=== PATIENT | female | born 1995 | race Caucasian/White ===

== ENCOUNTER 2016-06-20 09:58 | Emergency (ER) | payer OTHER ==
[~2016-06-20] VITALS: Ht 170.2 cm; Wt 57.5 kg
[2016-06-20 10:14] VITALS: Ht 170.2 cm; Wt 57.5 kg
[2016-06-20] MEDS ORDERED: ACETAMINOPHEN 500 MG TAB PO STA (11:07)
[2016-06-20 11:37] LABS: BASOPHIL # 0.1 10^3/ul (0.0-0.1); EOSINOPHILS # 0.2 10^3/ul (0.0-0.5); HEMATOCRIT 38.2 % (37.0-47.0); HEMOGLOBIN 12.9 g/dl (12.0-16.0); LYMPHOCYTES # 2.2 10^3/ul (0.8-2.9); LYMPHOCYTES % 27.6 % (15.0-51.0); MEAN CORPUSCULAR HEMOGLOBIN 27.7 pg (29.0-33.0); MEAN CORPUSCULAR HGB CONC 33.8 g/dl (32.0-37.0); MEAN PLATELET VOLUME 9.4 fl (7.4-10.4); MONOCYTE # 0.5 10^3/ul (0.3-0.9); MONOCYTES % 6.3 % (0.0-11.0); NEUTROPHILS % 62.8 % (39.0-77.0); PLATELET COUNT 340 10^3/UL (140-415); RED BLOOD COUNT 4.66 10^6/ul (4.20-5.40); WHITE BLOOD COUNT 7.9 10^3/ul (4.8-10.8)
[2016-06-20 11:39] LABS: ADD UMIC YES; URINE BILIRUBIN (Dip) NEGATIVE (NEGATIVE); URINE BLOOD (Dip) 2+ (NEGATIVE); URINE COLOR LT. YELLOW (YELLOW); URINE GLUCOSE (Dip) NEGATIVE (NEGATIVE); URINE KETONES (Dip) NEGATIVE (NEGATIVE); URINE LEUKOCYTE ESTERASE (Dip) TRACE (NEGATIVE); URINE NITRITE (Dip) NEGATIVE (NEGATIVE); URINE TOTAL PROTEIN (Dip) NEGATIVE (NEGATIVE); URINE UROBILINOGEN (Dip) 0.2 E.U./dL (0.1-1.0)
--- NOTE | 2016-06-20 11:54 | RADRPT ---
PROCEDURE: US Obstetrical 1st Trimester CLINICAL INDICATION: Vaginal bleeding TECHNIQUE: Multiple real-time images were acquired of the patient's maternal abdomen utilizing a curved array transducer. COMPARISON: None FINDINGS: The uterus is normal in size and measures 8.8 cm in sagittal diameter and 6.9 x 4.6 cm in cross diam eter.. The endometrial stripe measures 1.2 cm in total AP diameter. No gestational sac is identified. The right ovary measures 3.9 by 2.1 x 1.3 cm. Vascular flow is demonstrated within the right ovary o n Doppler. The left ovary is not identified. No adnexal mass or free fluid is identified IMPRESSION: 1. Normal size empty uterus with a 1.2 cm endometrial stripe. No intrauterine gestation is evident. 2. The left ovary is not identified. The right ovary appears normal and demonstrates vascular flow . 3. No adnexal mass or free fluid is evident. 4. If the test is indeed positive, correlation with quantitative serial beta HCG may be u seful. Possibilities include a spontaneous and an occult ectopic cannot be exclu ded. Physician Herber Date Time Electronically viewed and signed by Physician Herber on 06/20/2016 11:54 RH/
[2016-06-20 12:10] LABS: BACTERIA,URINE FEW
[2016-06-20] MEDS ORDERED: ACET500C5 PO (12:16)
--- NOTE | 2016-06-22 12:07 | ERD ---
ER Documentation Chief Complaint Date/Time DATE: 06/22/16 TIME: 12:05 Chief Complaint Complains of vag bleed and 10 wks HPI This 18-year-old female presents with a one-day history of spotting and suprapubic cramping. She is approximately 10 weeks by dates. She is a G2 para 0. She denies fevers, vomiting, right-sided abdominal pain. ROS All systems reviewed and are negative except as per history of present illness. Medications Home Meds Active Scripts Acetaminophen* (Tylophen*) 500 Mg Capsule, 1 CAP PO Q6H Y for PAIN AND OR ELEVATED TEMP, #15 CAP Prov:YURI BAE MD 06/20/16 Allergies Allergies: Coded Allergies: No Known Allergy (Unverified , 06/20/16) PMhx/Soc Medical and Surgical Hx: pt denies Medical Hx, pt denies Surgical Hx Hx Alcohol Use: No Hx Substance Use: No Hx Tobacco Use: No Physical Exam Vitals Vital Signs Date Time Temp Pulse Resp B/P Pulse Ox O2 Delivery O2 Flow Rate FiO2 06/20/16 10:14 98.2 86 20 122/82 100 Physical Exam Const: [] Head: Atraumatic Eyes: Normal Conjunctiva ENT: Normal External Ears, Nose and Mouth. Neck: Full range of motion..~ No meningismus. Resp: Clear to auscultation bilaterally Cardio: Regular rate and rhythm, no murmurs Abd: Soft, non tender, non distended. Normal bowel sounds Skin: No petechiae or rashes Back: No midline or flank tenderness Ext: No cyanosis, or edema Neur: Awake and alert Psych: Normal Mood and Affect Result Diagram: 06/20/16 1100 Results 24 hrs Laboratory Tests Test 06/20/16 11:00 Basophils # 0.110^3/ul Basophils % 1.0% Beta HCG, Quantitative 1177.2mIU/ml Eosinophils # 0.210^3/ul Eosinophils % 2.0% Hematocrit 38.2% Hemoglobin 12.9g/dl Lymphocytes # 2.210^3/ul Lymphocytes % 27.6% Mean Corpuscular Hemoglobin 27.7pg Mean Corpuscular Hemoglobin Concent 33.8g/dl Mean Corpuscular Volume 82.0fl Mean Platelet Volume 9.4fl Monocytes # 0.510^3/ul Monocytes % 6.3% Neutrophils # 5.010^3/ul Neutrophils % 62.8% Nucleated Red Blood Cells # 0.010^3/ul Nucleated Red Blood Cells % 0.0/100WBC Platelet Count 09880^3/UL Red Blood Count 4.6610^6/ul Red Cell Distribution Width 12.0% Urine Bacteria FEW Urine Bilirubin NEGATIVE Urine Clarity CLEAR Urine Color LT. YELLOW Urine Epithelial Cells FEW Urine Glucose NEGATIVE% Urine Hemoglobin 2+ Urine Ketones NEGATIVE Urine Leukocyte Esterase TRACE Urine Microscopic RBC 2-5/HPF Urine Microscopic WBC 0-2/HPF Urine Nitrite NEGATIVE Urine Specific [place] 1.010 Urine Total Protein NEGATIVE Urine Urobilinogen 0.2 E.U./dL Urine pH 6.0 White Blood Count 7.910^3/ul Current Medications Medications (Trade) Dose Ordered Sig/Alex Route PRN Reason Start Time Stop Time Status Last Admin Dose Admin Acetaminophen (Tylenol Tab) 500 mg ONCE STAT PO 06/20/16 11:07 06/20/16 11:09 DC 06/20/16 11:19 Procedures/MDM Quantitative hCG is 1100. Patient is Rh+. CBC is normal. Urine shows trace leukocytes positive hemoglobin. Pelvic ultrasound-MPRESSION: 1. Normal size empty uterus with a 1.2 cm endometrial stripe. No intrauterine gestation is evident. 2. The left ovary is not identified. The right ovary appears normal and demonstrates vascular flow. 3. No adnexal mass or free fluid is evident. 4. If the test is indeed positive, correlation with quantitative serial beta HCG may be useful. Possibilities include a spontaneous and an occult ectopic cannot be excluded. Patient presents with vaginal bleeding and cramping on the first semester no visible intrauterine . There is no obvious signs of ectopic today. Patient will need a 2 day follow-up. Differential includes early normal , incomplete or complete , ectopic . Patient will be discharged home with instructions to recheck in 2 days to recheck hormone levels and possibly ultrasound. She should otherwise return for fevers, vomiting, new worsening symptoms Departure Diagnosis: Primary Impression: Vaginal bleeding in patient at less than 20 weeks ges... Condition: Stable Patient Instructions: Bleeding During Early Additional Instructions: No visible on ultrasound. Suspect miscarriage complete the possibility of ectopic still. Recommend recheck hormone level in 48 hours or return sooner for fevers, new worsening symptoms. Follow-up with treating [employer] for further treatment . YURI BAE MD Jun 22, 2016 12:07
== END 2016-06-20 12:48 | disposition home or self-care (01) ==
LOC: FTE 09:58
DX: O20.9 Hemorrhage in early pregnancy, unspecified (principal); Z3A.10 10 weeks gestation of pregnancy
CPT/HCPCS: 36415; 76801; 81001; 84702; 85025; 86900; 86901; Z7502; Z7610; 81003

== ENCOUNTER 2016-06-22 11:21 | Emergency (ER) | payer OTHER ==
[~2016-06-22] VITALS: Wt 58.0 kg
[~2016-06-22 11:21] MED LIST: ACET500C5 PO
[2016-06-22 11:43] LABS: URINE BLOOD (Dip) POC 2+ (NEGATIVE)
[2016-06-22 12:04] LABS: BASOPHIL # 0.1 10^3/ul (0.0-0.1); BASOPHILS % 1.1 % (0.0-2.0); EOSINOPHILS # 0.2 10^3/ul (0.0-0.5); EOSINOPHILS % 2.7 % (0.0-7.0); HEMATOCRIT 39.3 % (37.0-47.0); HEMOGLOBIN 13.4 g/dl (12.0-16.0); LYMPHOCYTES # 2.2 10^3/ul (0.8-2.9); LYMPHOCYTES % 28.2 % (15.0-51.0); MEAN CORPUSCULAR HEMOGLOBIN 28.6 pg (29.0-33.0); MEAN CORPUSCULAR HGB CONC 34.2 g/dl (32.0-37.0); MEAN CORPUSCULAR VOLUME 83.6 fl (82.0-101.0); MEAN PLATELET VOLUME 7.6 fl (7.4-10.4); MONOCYTE # 0.5 10^3/ul (0.3-0.9); MONOCYTES % 6.9 % (0.0-11.0); NEUTROPHIL # 4.7 10^3/ul (1.6-7.5); NEUTROPHILS % 61.1 % (39.0-77.0); PLATELET COUNT 363 10^3/UL (140-440); RED CELL DISTRIBUTION WIDTH 12.6 % (11.5-14.5); UNCORRECTED WBC 7.7 10^3/ul (4.8-10.8); WHITE BLOOD COUNT 7.7 10^3/ul (4.8-10.8)
[2016-06-22 12:05] LABS: ADD UMIC YES; URINE BILIRUBIN (Dip) NEGATIVE (NEGATIVE); URINE BLOOD (Dip) 3+ (NEGATIVE); URINE COLOR LT. YELLOW (YELLOW); URINE GLUCOSE (Dip) NEGATIVE (NEGATIVE); URINE KETONES (Dip) NEGATIVE (NEGATIVE); URINE LEUKOCYTE ESTERASE (Dip) NEGATIVE (NEGATIVE); URINE NITRITE (Dip) NEGATIVE (NEGATIVE); URINE TOTAL PROTEIN (Dip) NEGATIVE (NEGATIVE); URINE UROBILINOGEN (Dip) 0.2 E.U./dL (0.1-1.0)
[2016-06-22 12:05] LABS: CONDITION 1
[2016-06-22 12:25] LABS: BACTERIA,URINE FEW; SQUAMOUS EPITHELIAL CELL,UR OCCASIONAL
--- NOTE | 2016-06-22 13:10 | RADRPT ---
PROCEDURE: US Pelvis. CLINICAL INDICATION: vaginal bleeding TECHNIQUE: Multiple sonographic images of the pelvis were obtained utilizing a transabdominal and endovaginal technique. The images were reviewed on a PACS workstation. COMPARISON: 06/20/2016 FINDINGS: The uterus is normal in size and demonstrates a normal appearance of the myometrium. The endometria l stripe is homogeneous in appearance and has the thickness of 10 mm. No intrauterine gestation is noted. The ovaries are normal in size and echogenicity. Normal Doppler flow is identified in both ovaries. The right ovary measures 1.8 x 1.6 x 1.5 cm. The left ovary measures 2.9 x 1.5 x 2.1 cm. There is a small simple cyst in the left ovary, measurin g 8 mm. No free fluid is present within the pelvis.. RPTAT: AA IMPRESSION: No intrauterine gestation visualized. Differential diagnosis includes early , missed or ectopic . Follow-up ultrasound and HCG levels is recommended. .Franck Copeland MD, MD Date Time Electronically viewed and signed by .Franck Copeland MD, on 06/22/2016 13:09 .S/
--- NOTE | 2016-06-22 13:29 | ERD ---
ER Documentation Chief Complaint Date/Time DATE: 06/22/16 TIME: 13:27 Chief Complaint vag bleed for 2 days here for hormone check, mild abdominal pain HPI 20-year-old female who is A1 comes to the emergency department for a repeat check for her hCG after being discharged 2 days ago for vaginal bleeding and cramping. This patient was previously seen and had a hCG of around 1100 and was having suprapubic cramping. Her last menstrual period she believes to be on April 08, 2016. She has not had any dizziness, shortness of breath or fevers or chills. ROS All systems reviewed and are negative except as per history of present illness. Medications Home Meds Active Scripts Acetaminophen* (Tylophen*) 500 Mg Capsule, 1 CAP PO Q6H Y for PAIN AND OR ELEVATED TEMP, #15 CAP Prov:YURI BAE MD 06/20/16 Allergies Allergies: Coded Allergies: No Known Allergy (Unverified , 06/20/16) PMhx/Soc Hx Alcohol Use: No Hx Substance Use: No Hx Tobacco Use: No Smoking Status: Never smoker Physical Exam Vitals Vital Signs Date Time Temp Pulse Resp B/P Pulse Ox O2 Delivery O2 Flow Rate FiO2 06/22/16 11:24 98.5 86 20 115/63 100 Physical Exam General: Well-developed, well-nourished. The patient appears in no acute distress. HEENT: Head is normocephalic, atraumatic. No scleral icterus. Neck: Supple. Nontender. Lungs: Clear to auscultation. Normal air movement. Heart: Regular rate and rhythm. S1 and S2 are normal. No murmurs, gallops, or rubs. Abdomen: Soft, nontender, nondistended. Bowel sounds are normoactive. Extremities: No clubbing or cyanosis. Normal pulses. Moving extremities x 4. No weakness. Neurologic: Alert and oriented 3. No focal deficits. Skin: Normal turgor. No rash or lesions. Result Diagram: 06/22/16 1152 Results 24 hrs Laboratory Tests Test 06/22/16 11:39 06/22/16 11:45 06/22/16 11:52 Urine Bacteria FEW Urine Bilirubin NEGATIVE Urine Clarity CLEAR Urine Color LT. YELLOW Urine Glucose NEGATIVE% Urine Hemoglobin 3+ Urine Ketones NEGATIVE Urine Leukocyte Esterase NEGATIVE Urine Microscopic RBC 10-25/HPF Urine Microscopic WBC 0-2/HPF Urine Nitrite NEGATIVE Urine Specific [place] 1.010 Urine Squamous Epithelial Cells OCCASIONAL Urine Total Protein NEGATIVE Urine Urobilinogen 0.2 E.U./dL Urine pH 5.5 Bedside Urine Blood 2+ Bedside Urine Glucose (UA) Negative Bedside Urine Ketones (LAB) Negative Bedside Urine Leukocyte Esterase (L Negative Bedside Urine Nitrite (LAB) Negative Bedside Urine Protein (LAB) Negative Bedside Urine pH (LAB) 7.0 Basophils # 0.110^3/ul Basophils % 1.1% Beta HCG, Quantitative 289.4mIU/ml Blood Morphology Comment Eosinophils # 0.210^3/ul Eosinophils % 2.7% Hematocrit 39.3% Hemoglobin 13.4g/dl Lymphocytes # 2.210^3/ul Lymphocytes % 28.2% Mean Corpuscular Hemoglobin 28.6pg Mean Corpuscular Hemoglobin Concent 34.2g/dl Mean Corpuscular Volume 83.6fl Mean Platelet Volume 7.6fl Monocytes # 0.510^3/ul Monocytes % 6.9% Neutrophils # 4.710^3/ul Neutrophils % 61.1% Nucleated Red Blood Cells # 0.010^3/ul Nucleated Red Blood Cells % 0.0/100WBC Platelet Count 64518^3/UL Red Blood Count 4.7010^6/ul Red Cell Distribution Width 12.6% White Blood Count 7.710^3/ul PROCEDURE: US Pelvis. CLINICAL INDICATION: vaginal bleeding TECHNIQUE: Multiple sonographic images of the pelvis were obtained utilizing a transabdominal and endovaginal technique. The images were reviewed on a PACS workstation. COMPARISON: 06/20/2016 FINDINGS: The uterus is normal in size and demonstrates a normal appearance of the myometrium. The endometrial stripe is homogeneous in appearance and has the thickness of 10 mm. No intrauterine gestation is noted. The ovaries are normal in size and echogenicity. Normal Doppler flow is identified in both ovaries. The right ovary measures 1.8 x 1.6 x 1.5 cm. The left ovary measures 2.9 x 1.5 x 2.1 cm. There is a small simple cyst in the left ovary, measuring 8 mm. No free fluid is present within the pelvis.. RPTAT: AA IMPRESSION: No intrauterine gestation visualized. Differential diagnosis includes early , missed or ectopic . Follow-up ultrasound and HCG levels is recommended. .Franck Copeland MD, MD Date Time Electronically viewed and signed by .Franck Copeland MD, on 06/22/2016 13: 09 Procedures/MDM 20-year-old female comes with vaginal bleeding, hCG has decreased from 1100-289 consistent with a miscarriage. Again the ultrasound does not show evidence of intrauterine is consistent with a complete . She was given ER return precautions to return for any worsening pain or bleeding. Otherwise she is to recheck with her OB in the next 3-4 days. We rule out ectopic at this time given the down trending hCG from 2 days ago. Departure Diagnosis: Primary Impression: Miscarriage Condition: Good Patient Instructions: Miscarriage Additional Instructions: Patient was advised to follow-up with their OB in 3-4 days for a recheck examination. If they were to develop any worsening symptoms sooner, including heavy vaginal bleeding or pelvic pain, they are to return to the ER for further evaluation. TY AUSTIN PA-C Jun 22, 2016 13:29
== END 2016-06-22 13:32 | disposition home or self-care (01) ==
LOC: FTE 11:21
DX: O03.9 Complete or unspecified spontaneous abortion without complication (principal)
CPT/HCPCS: 76801; 76817; 81001; 84702; 85025; Z7502; 81003